=== PATIENT | male | born 1975 | race Native Hawaiian/Other Pacific Islander ===

== ENCOUNTER 2023-10-31 11:13 | Emergency (ER) | payer OTHER ==
[~2023-10-31] VITALS: Ht 180.3 cm; Wt 88.9 kg
[2023-10-31 11:21] VITALS: TEMP 98.1
[2023-10-31 11:37] LABS: PLATELET COUNT 257 K/uL (142-355)
[2023-10-31] MEDS ORDERED: NITROGLYCERIN 1 GM OIN TOP ONE (11:56)
[2023-10-31] MEDS ORDERED: NITROGLYCERIN 1 GM OIN ONE (11:57)
[2023-10-31 13:00] VITALS: BP 129/79
== END 2023-10-31 13:02 | disposition short-term general hospital (02) ==
LOC: ED 11:13
PROVIDERS: Internal Medicine Endocrinology, Diabetes & Metabolism
DX: R07.9 Chest pain, unspecified (principal); R79.89 Other specified abnormal findings of blood chemistry; R42 Dizziness and giddiness
CPT/HCPCS: 80053; 84484; 85027; 85379; 93005; 99284